=== PATIENT | female | born 1955 | race African-American/Black ===

== ENCOUNTER 2017-09-25 19:36 | Inpatient (IN) | payer SELFPAY ==
[~2017-09-25] VITALS: Ht 162.6 cm; Wt 86.9 kg
--- NOTE | 2017-09-25 20:38 | PHYS DOC ---
Past Medical History Past Medical History: No Pertinent History Past Surgical History: , Other Additional Past Surgical Histo: L EAR KELOID REMOVAL Alcohol Use: None Drug Use: None Adult General Chief Complaint Chief Complaint: ALLERGIC REACTION HPI HPI Patient is a 62 year old female presenting to the emergency department for evaluation of hives on her upper extremity in addition to an apparent allergic shiner on her right eye. She did not get exposed to any new soaps detergents medications foods or anything that she can think of. Patient says that her vision is not changed and she has no pain fevers chills nausea vomiting or other systemic symptoms. Patient is very transparent with me and says that she does not see physicians. Patient says that she works up here but used to live in [facility] and she lost her apartment and she has no place to stay. She does not have any accessible family here and she is very much hoping that we could keep her in the hospital overnight. Patient is in no obvious distress with normal vital signs except for her hypertension. Review of Systems Review of Systems Constitutional: Denies fever or chills [] Eyes: Denies change in visual acuity, redness, or eye pain [] HENT: Denies nasal congestion or sore throat [] Respiratory: Denies cough or shortness of breath [] Cardiovascular: No additional information not addressed in HPI [] GI: Denies abdominal pain, nausea, vomiting, bloody stools or diarrhea [] : Denies dysuria or hematuria [] Musculoskeletal: Denies back pain or joint pain [] Integument: Denies rash or skin lesions [] Neurologic: Denies headache, focal weakness or sensory changes [] Current Medications Current Medications Current Medications Medications (Trade) Dose Ordered Sig/[place] Start Time Stop Time Status Last Admin Dose Admin Diphenhydramine HCl (Benadryl) 50 mg 1X ONCE 09/25/17 20:45 09/25/17 20:47 DC Famotidine (Pepcid Vial) 20 mg 1X ONCE 09/25/17 20:45 09/25/17 20:47 DC Hydralazine HCl (Apresoline Inj) 10 mg PRN Q6HRS PRN 09/25/17 20:45 Hydrochlorothiazide (Hydrodiuril) 25 mg 1X ONCE 09/25/17 20:45 09/25/17 20:47 DC Lisinopril (Prinivil) 40 mg 1X ONCE 09/25/17 20:45 09/25/17 20:47 DC Methylprednisolone Sodium Succinate (SOLU-Medrol 125MG VIAL) 125 mg 1X ONCE 09/25/17 20:45 09/25/17 20:47 DC Ondansetron HCl (Zofran) 4 mg PRN Q8HRS PRN 09/25/17 20:45 09/26/17 20:44 Allergies Allergies Allergies Coded Allergies Type Severity Reaction Last Updated Verified No Known Drug Allergies 09/25/17 No Physical Exam Physical Exam Constitutional: Well developed, well nourished, no acute distress, non-toxic appearance. [] HENT: Normocephalic, atraumatic, bilateral external ears normal, oropharynx moist, no oral exudates, nose normal. [] Eyes: PERRLA, EOMI, conjunctiva normal. Right I edematous but not painful to palpation with no cellulitis noted and no pain with extraocular movements. Neck: Normal range of motion, no tenderness, supple, no stridor. [] Cardiovascular:Heart rate regular rhythm, no murmur [] Lungs & Thorax: Bilateral breath sounds clear to auscultation [] Abdomen: Bowel sounds normal, soft, no tenderness, no masses, no pulsatile masses. [] Skin: Warm, dry, no erythema, no rash. [] Back: No tenderness, no CVA tenderness. [] Extremities: No tenderness, no cyanosis, no clubbing, ROM intact, no edema. [] Neurologic: Alert and oriented X 3, normal motor function, normal sensory function, no focal deficits noted. [] Current Patient Data Vital Signs Vital Signs Date Time Temp Pulse Resp B/P (MAP) Pulse Ox O2 Delivery O2 Flow Rate FiO2 09/25/17 19:48 98.1 68 16 221/81 (127) 100 Room Air 98.1 EKG EKG [] Radiology/Procedures Radiology/Procedures [] Course & Med Decision Making Course & Med Decision Making Patient will be admitted for hypertensive urgency and treated for her allergic shiner. Dragon Disclaimer Dragon Disclaimer This electronic medical record was generated, in whole or in part, using a voice recognition dictation system. Departure Departure Impression: Primary Impression: Hypertensive urgency Additional Impression: Allergic shiners Disposition: ADMITTED INPATIENT Admitting Physician: Other (FULBRIGHT) Condition: STABLE Referrals: NO PCP (PCP) Problem Qualifiers VANI DELGADO DO Sep 25, 2017 20:38
[2017-09-25] MEDS ORDERED: LISINOPRIL 10 MG TABLET PO ONE (20:45)
[2017-09-25] MEDS ORDERED: diphenhydrAMINE 50 MG/ML VIAL IVP ONE (20:45)
[2017-09-25] MEDS ORDERED: ONDANSETRON PF 4 MG/2 ML VIAL. IV PRN (20:45)
[2017-09-25] MEDS ORDERED: hydroCHLOROthiazide 25 MG TABLET PO ONE (20:45)
[2017-09-25] MEDS ORDERED: FAMOTIDINE 20 MG/2 ML VIAL IVP ONE (20:45)
[2017-09-25] MEDS ORDERED: hydrALAZINE 20 MG/ML VIAL. IVP PRN (20:45)
[2017-09-25] MEDS ORDERED: methylPREDNISolone SOD SUCC PF 125 MG/2 ML VIAL. IV ONE (20:45)
[2017-09-25 21:18] LABS: BASO % 0 % (0-3); EOS % 2 % (0-3); HEMOGLOBIN 11.8 g/dL (12.0-15.5); LYMPH % 34 % (24-48); MEAN CORPUSCULAR HEMOGLOBIN 28 pg (25-35); MEAN CORPUSCULAR HGB CONC 33 g/dL (31-37); MEAN CORPUSCULAR VOLUME 87 fL (79-100); MONO % 6 % (0-9); NEUT % 58 % (31-73); PLATELET COUNT 258 x10^3/uL (140-400); RED BLOOD COUNT 4.16 x10^6/uL (3.50-5.40); RED CELL DISTRIBUTION WIDTH 13.9 % (11.5-14.5)
[2017-09-25 21:27] LABS: CALCIUM 9.2 mg/dL (8.5-10.1); CREATININE 0.9 mg/dL (0.6-1.0); GFR 77.3; POTASSIUM 3.2 mmol/L (3.5-5.1)
[2017-09-25 21:35] LABS: ALBUMIN 3.7 g/dL (3.4-5.0); ALBUMIN/GLOBULIN RATIO 0.9 (1.0-1.7); MAGNESIUM 2.1 mg/dL (1.8-2.4); TOTAL BILIRUBIN 0.4 mg/dL (0.2-1.0); TOTAL PROTEIN 7.8 g/dL (6.4-8.2)
[2017-09-26 03:32] VITALS: BP 127/63
[2017-09-26 07:00] VITALS: BP 131/63
[2017-09-26] MEDS: diphenhydrAMINE HCL 25 MG CAPSULE PO PRN ×2 (09:01→18:01)
[2017-09-26 10:37] VITALS: BP 148/97
[2017-09-26 14:40] VITALS: BP 145/62
[2017-09-26] MEDS ORDERED: LISI40TA PO (15:54)
--- NOTE | 2017-09-26 16:16 | HP ---
ADMIT DATE: 09/25/2017 CHIEF COMPLAINT: Allergic reaction, swollen periorbital area on the right. HISTORY OF PRESENT ILLNESS: The patient is a 62-year-old -[place] woman with hypertension, who presented to the Emergency Room with hives as well as periorbital edema on the right. She denies any exposure to new detergents, medications, foods or similar things that potentially could cause allergic reaction. Her vision has not changed. She denies any fevers, chills or current symptoms. She, however, did have an upper respiratory infection for which she actually was at [facility] last week. She is currently homeless, lost her car as well and apparently has used up all her resources as far as family and friends are concerned and is well versed with intermediate situation. PAST MEDICAL HISTORY: Hypertension. SOCIAL HISTORY: Homeless. No toxic habits. Works as a computer game programmer. FAMILY HISTORY: Unknown to her. ALLERGIES: No known drug allergies. MEDICATIONS: None. REVIEW OF SYSTEMS: Positive as per HPI. Rest of organ system review is obtained and is negative. PHYSICAL EXAMINATION: VITAL SIGNS: From today show a blood pressure of 145/62, heart rate of 72, respiratory rate at 18. She is afebrile. GENERAL: This is a 62-year-old obese -[place] woman, alert and oriented, in no acute distress. HEENT: Shows resolving periorbital edema on the right. There is no conjunctival erythema and no scleral icterus. Extraocular movements are intact. NECK: Supple, without any lymphadenopathy. LUNGS: Clear. HEART: Regular rate and rhythm. ABDOMEN: Has positive bowel sounds, soft, nontender. EXTREMITIES: Show no edema. SKIN: Reveals tiny spots that are slightly raised, possibly insect bites. NEUROLOGIC: She appears grossly intact. LABORATORY DATA: CBC with a WBC of 6.0, hemoglobin 11.8, platelets of 258. Chemistries with a BUN and creatinine of 12 and 0.9, normal electrolytes, say for a potassium of 3.2. LFTs within normal. ASSESSMENT AND PLAN: The patient is a 62-year-old woman presenting with questionable allergic reaction and found in hypertensive urgency. She is admitted. Her blood pressure currently is well controlled after receiving lisinopril x 1 in the Emergency Room. We will continue the medication. I discussed with her that the prescription is $4 at [facility], possibly not at [facility] according to recollections of other patient's recently. Her living situation is unfortunately in flux. She is wondering if social workers can help here. Unfortunately, resources here are limited to inpatients only. She will stay overnight, catch bus early in the morning for her job. Her discharge will be prepared for her. PAVEL SARMIENTO MD DR: JAVAN/iftikhar JOB#: [id number] / [id number] NAHID
[2017-09-26 19:10] VITALS: BP 141/53
[2017-09-26] MEDS ORDERED: ACETAMINOPHEN 325 MG TABLET. PO PRN (19:45)
[2017-09-26] MEDS ORDERED: IBUPROFEN 600 MG TABLET. PO PRN (19:45)
[2017-09-26] MEDS ORDERED: LISINOPRIL 40 MG TABLET. PO SCH (21:00)
[2017-09-26 23:10] VITALS: BP 125/52
[2017-09-27 03:10] VITALS: BP 140/50
--- NOTE | 2017-09-27 09:45 | HP ---
ADMIT DATE: 09/25/2017 CHIEF COMPLAINT: Periorbital edema, hypertensive urgency. HOSPITAL COURSE: The patient is a 62-year-old woman with known hypertension who presented to the Emergency Room with swelling around her right eye as well as rash on her forearms. She was found in the Emergency Room with hypertensive urgency and admitted. Blood pressure was brought under control with p.o. lisinopril as well as labetalol IV p.r.n. The swelling on her eye was observed, improved spontaneously and was deemed appropriate for discharge on the . PHYSICAL EXAMINATION: VITAL SIGNS: Blood pressure of 140/50, heart rate of 49, respiratory rate at 18. She is afebrile. GENERAL: This is an obese 62-year-old woman, alert and oriented, in no acute distress. HEENT: Shows mild eyelid swelling on the right. LUNGS: Clear. HEART: Regular rate and rhythm. ABDOMEN: Positive bowel sounds, soft, nontender. EXTREMITIES: Show no edema. DISCHARGE DIAGNOSES: Periorbital swelling, question allergic reaction; hypertensive urgency. DISCHARGE DISPOSITION: To home. DISCHARGE CONDITION: Improved. DISCHARGE MEDICATIONS: Lisinopril 40 mg daily. DISCHARGE INSTRUCTIONS: The patient will follow up with PCP for blood pressure check. PAVEL SARMIENTO MD DR: JAVAN/iftikhar JOB#: [id number] / [id number] NAHID
== END 2017-09-27 06:35 | disposition home or self-care (01) | DRG 305 ==
LOC: ER 19:36 → 6 SOUTH 21:51
PROVIDERS: ADMIT Internal Medicine Hematology & Oncology; ATTEND Internal Medicine Hematology & Oncology
DX: I16.0 Hypertensive urgency (principal); H05.229 Edema of unspecified orbit; T78.40XA Allergy, unspecified, initial encounter; I10 Essential (primary) hypertension; Z59.0 Homelessness; X58.XXXA Exposure to other specified factors, initial encounter
CPT/HCPCS: 36415; 80053; 83735; 85025; 96374; 96375; J0360; J1200; J2405; J2930; Q0163; S0028; 99285-25

== ENCOUNTER 2017-12-27 21:43 | Inpatient (IN) | payer SELFPAY ==
[2017-12-27] MEDS: IV NORMAL SALINE 1000ML BAG 1,000 ML IV (22:10)
[2017-12-27] MEDS: ASPIRIN CHEWABLE 81 MG TABLET. PO (22:11)
[2017-12-27] MEDS: cloNIDine HCL 0.1 MG TABLET PO (22:11)
[2017-12-27] MEDS ORDERED: CONTRAST GIVEN MC (22:15)
[2017-12-27] MEDS: IOHEXOL 300 MG/ML 100ML VIAL. IV (22:15)
[2017-12-27 22:19] LABS: ADD MAN DIFF? NO
[2017-12-27 22:21] LABS: BASO % 0 % (0-3); EOS # 0.2 x10^3/uL (0.0-0.7); EOS % 3 % (0-3); HEMATOCRIT 35.6 % (36.0-47.0); LYMPH % 33 % (24-48); MEAN CORPUSCULAR HEMOGLOBIN 29 pg (25-35); MEAN CORPUSCULAR HGB CONC 34 g/dL (31-37); MEAN CORPUSCULAR VOLUME 85 fL (79-100); MONO # 0.4 x10^3/uL (0.0-1.1); MONO % 6 % (0-9); NEUT # 3.5 x10^3uL (1.8-7.7); NEUT % 58 % (31-73); PLATELET COUNT 202 x10^3/uL (140-400); RED BLOOD COUNT 4.18 x10^6/uL (3.50-5.40); RED CELL DISTRIBUTION WIDTH 13.9 % (11.5-14.5)
[2017-12-27 22:34] LABS: ANION GAP 10 (6-14); BLOOD UREA NITROGEN 14 mg/dL (7-20); BUN/CREATININE RATIO 14 (6-20); CALCIUM 9.2 mg/dL (8.5-10.1); CARBON DIOXIDE 28 mmol/L (21-32); CHLORIDE 103 mmol/L (98-107); GFR 68.4; GLUCOSE 120 mg/dL (70-99); POTASSIUM 3.2 mmol/L (3.5-5.1); SODIUM 141 mmol/L (136-145)
[2017-12-27 22:35] LABS: ETHANOL < 10 mg/dL (0-10)
[2017-12-27 22:40] LABS: ALBUMIN 3.6 g/dL (3.4-5.0); ALBUMIN/GLOBULIN RATIO 0.9 (1.0-1.7); ALK PHOS 92 U/L (46-116); ALT (SGPT) 23 U/L (14-59); AST (SGOT) 13 U/L (15-37); TOTAL BILIRUBIN 0.3 mg/dL (0.2-1.0); TOTAL PROTEIN 7.4 g/dL (6.4-8.2)
[2017-12-27 22:42] LABS: TROPONINI < 0.017 ng/mL (0.000-0.055)
[2017-12-27] MEDS ORDERED: fentaNYL PF VIAL 100 MCG/2 ML VIAL IV (23:45)
[2017-12-27] MEDS ORDERED: NITROGLYCERIN SUBLINGUAL 0.4 MG BOTTLE OF 25. SL (23:45)
[2017-12-28] MEDS: ACETAMINOPHEN 325 MG TABLET. PO (01:33)
[2017-12-28] MEDS: ONDANSETRON PF 4 MG/2 ML VIAL. IV ×2 (01:33→20:14)
[2017-12-28 05:51] LABS: ADD MAN DIFF? NO; BASO % 0 % (0-3); EOS # 0.1 x10^3/uL (0.0-0.7); EOS % 2 % (0-3); HEMOGLOBIN 11.8 g/dL (12.0-15.5); LYMPH # 2.3 x10^3/uL (1.0-4.8); LYMPH % 40 % (24-48); MEAN CORPUSCULAR HEMOGLOBIN 29 pg (25-35); MEAN CORPUSCULAR HGB CONC 34 g/dL (31-37); MEAN CORPUSCULAR VOLUME 86 fL (79-100); MONO # 0.4 x10^3/uL (0.0-1.1); MONO % 6 % (0-9); NEUT # 2.9 x10^3uL (1.8-7.7); NEUT % 52 % (31-73); PLATELET COUNT 188 x10^3/uL (140-400); RED BLOOD COUNT 4.07 x10^6/uL (3.50-5.40); WHITE BLOOD COUNT 5.7 x10^3/uL (4.0-11.0)
[2017-12-28 06:06] LABS: ALBUMIN 3.2 g/dL (3.4-5.0); ALK PHOS 94 U/L (46-116); ALT (SGPT) 21 U/L (14-59); ANION GAP 7 (6-14); AST (SGOT) 14 U/L (15-37); BLOOD UREA NITROGEN 13 mg/dL (7-20); BUN/CREATININE RATIO 14 (6-20); CARBON DIOXIDE 29 mmol/L (21-32); CHLORIDE 106 mmol/L (98-107); CREATININE 0.9 mg/dL (0.6-1.0); GFR 77.3; GLUCOSE 87 mg/dL (70-99); POTASSIUM 3.3 mmol/L (3.5-5.1); SODIUM 142 mmol/L (136-145); TOTAL BILIRUBIN 0.3 mg/dL (0.2-1.0); TOTAL PROTEIN 6.4 g/dL (6.4-8.2)
[2017-12-28 06:11] LABS: TROPONINI 0.024 ng/mL (0.000-0.055)
[2017-12-28] MEDS ORDERED: hydrALAZINE 20 MG/ML VIAL. IVP (07:45)
[2017-12-28 08:38] LABS: CHOLESTEROL 173 mg/dL (0-200); HDLC 53 mg/dL (40-60); LDLC 95 mg/dL (0-100); NON-HDL CHOLESTEROL 120 mg/dL (0-129); TRIGLYCERIDES 127 mg/dL (0-150); VLDLC 25 mg/dL (0-40)
[2017-12-28 08:39] LABS: CHOLESTEROL/HDL RATIO 3.3
[2017-12-28] MEDS: ASPIRIN ENTERIC COATED 81 MG TABLET.DR. PO (08:41)
[2017-12-28] MEDS: POTASSIUM CHLORIDE 20 MEQ TABLET.ER. PO (08:41)
[2017-12-28 08:46] LABS: THYROID STIM HORMONE (TSH) 2.775 uIU/mL (0.358-3.74)
[2017-12-28] MEDS: LISINOPRIL 10 MG TABLET PO (14:17)
[2017-12-28] MEDS: BUTALB/APAP/CAFEIN 50/325/40MG TABLET. PO ×2 (14:18→20:14)
[2017-12-28] MEDS: ENOXAPARIN 40 MG/0.4 ML SYRINGE. SQ (17:53)
[2017-12-29] MEDS: ASPIRIN ENTERIC COATED 81 MG TABLET.DR. PO (08:42)
[2017-12-29] MEDS: LISINOPRIL 10 MG TABLET PO (08:43)
[2017-12-29] MEDS: BUTALB/APAP/CAFEIN 50/325/40MG TABLET. PO (09:26)
[2017-12-29] MEDS: traMADol 50 MG TABLET PO (10:58)
[2017-12-29] MEDS ORDERED: POLYVINYL ALCOHOL 1.4% OPHTH SOLUTION 15ML BOTTLE. OU (11:00)
== END 2017-12-29 15:30 | disposition home or self-care (01) | DRG 206 ==
LOC: 6 SOUTH 23:30 → ER 21:43
DX: M94.0 Chondrocostal junction syndrome [Tietze] (principal); E66.9 Obesity, unspecified; I16.0 Hypertensive urgency; E87.6 Hypokalemia; I10 Essential (primary) hypertension; G43.909 Migraine, unspecified, not intractable, without status migrainosus; Z68.34 Body mass index [BMI] 34.0-34.9, adult; Z82.49 Family history of ischemic heart disease and other diseases of the circulatory system
CPT/HCPCS: 36415; 70450; 71045; 71275; 80053; 80061; 83735; 84443; 84484; 85025; 93005; 93306; 96360; 99285; 99285-25; G0480; J1650; J2405; J7030